=== PATIENT | male | born 1930 | race Caucasian/White ===

== ENCOUNTER 2016-11-14 15:00 | Outpatient (RCR) | payer MEDICARE, OTHER | END 2016-11-28 | disposition home or self-care (01) | LOC: WCC 15:00 | DX: R31.9 Hematuria, unspecified (principal); Z85.51 Personal history of malignant neoplasm of bladder; Z92.3 Personal history of irradiation; Z95.0 Presence of cardiac pacemaker; I25.2 Old myocardial infarction; Z85.46 Personal history of malignant neoplasm of prostate; I10 Essential (primary) hypertension; Z86.73 Personal history of transient ischemic attack (TIA), and cerebral infarction without residual deficits; I51.9 Heart disease, unspecified; Z79.82 Long term (current) use of aspirin | CPT/HCPCS: G0463 ==